=== PATIENT | female | born 1935 | race Caucasian/White ===

== ENCOUNTER 2017-12-13 21:23 | Emergency (ER) | payer MEDICARE, OTHER ==
[~2017-12-13] VITALS: Ht 170.2 cm; Wt 72.6 kg
[~2017-12-13 21:23] MED LIST: ALBU90OI; ALBU90OI INH; ALEN70 PO; Albuterol2.5 MG/0.5 INH; Alphagan P 5ML5 ML BOTHEYES; Alphagan P5 ML; BENZ100A PO; CIPR500 PO; DOC250 PO; ESTR1; FLUSAL1005; FLUSAL2505; FLUSAL5005 INH; FLUT.05NI; GABA100 PO; GUAI600T33 PO; LATANOPROST2.5 ML BOTHEYES; LAVAP17G PO; LEVFLO500 PO; LEVO750 PO; Miralax17 GM PO; PRED20 PO; Patanase30.5 GM; TIOT18 INH; TRIHYD253A; [UNRECOGNIZED DRUG - REMARK]
[2017-12-13] MEDS ORDERED: FURO20 PO (21:52)
[2017-12-13] MEDS ORDERED: FLONASE ALLERG9.9 ML (21:52)
[2017-12-13] MEDS ORDERED: POTCHL10ER PO (21:53)
[2017-12-13] MEDS ORDERED: Bactrim Ds Tab1 EACH PO (23:59)
== END 2017-12-14 00:50 | disposition home or self-care (01) ==
LOC: ER 21:23
DX: L03.115 Cellulitis of right lower limb (principal); J44.9 Chronic obstructive pulmonary disease, unspecified; Z88.0 Allergy status to penicillin; Z79.899 Other long term (current) drug therapy; Z90.89 Acquired absence of other organs; Z95.0 Presence of cardiac pacemaker; Z87.891 Personal history of nicotine dependence
CPT/HCPCS: 99283

== ENCOUNTER 2018-01-10 08:00 | Emergency (ER) | payer MEDICARE, OTHER ==
[~2018-01-10] VITALS: Ht 167.6 cm; Wt 72.6 kg
[~2018-01-10 08:00] MED LIST changes: +Bactrim Ds Tab1 EACH PO; +FLONASE ALLERG9.9 ML; +FURO20 PO; +POTCHL10ER PO
[2018-01-10 09:12] LABS: BASOPHILS ABSOLUTE AUTO 0.06 K/mm3 (0.00-0.23); BASOPHILS PERCENT AUTO 1 % (0-2); EOSINOPHILS ABSOLUTE AUTO 0.02 K/mm3 (0.00-0.68); EOSINOPHILS PERCENT AUTO 0 % (0-6); Hematocrit 31.6 % (33.0-51.0); Hemoglobin 9.6 g/dL (11.5-16.0); IMMATURE GRAN ABSOLUTE AUTO 0.05 K/mm3 (0.00-0.10); IMMATURE GRAN PERCENT AUTO 0 % (0-1); LYMPHOCYTES PERCENT AUTO 6 % (21-46); MONOCYTES ABSOLUTE AUTO 1.04 K/mm3 (0.16-1.47); MONOCYTES PERCENT AUTO 8 % (4-13); Mean Corpuscular HGB 28.9 pg (26.0-34.0); Mean Corpuscular HGB Conc 30.4 g/dL (31.5-36.5); Mean Corpuscular Volume 95 fL (80-100); Mean Platelet Volume 10.4 fL (9.1-12.4); NEUTROPHILS ABSOLUTE AUTO 10.91 K/mm3 (1.96-9.15); NEUTROPHILS PERCENT AUTO 85 % (41-73); Platelet Count 293 K/mm3 (150-400); RDW Coefficient Variation 13.6 % (11.7-14.2); RDW Standard Deviation 47.4 fL (35.1-46.3); Red Blood Cell Count 3.32 M/mm3 (3.80-5.20); White Blood Cell Count 12.78 K/mm3 (4.00-11.30)
[2018-01-10 09:25] LABS: Alanine Aminotransfer (ALT/SGP 15 U/L (12-78); Albumin, Blood 2.7 g/dL (3.4-5.0); Albumin/Globulin Ratio 0.6 (0.8-1.8); Alk Phos 83 U/L (50-136); Anion Gap 8 mmol/L (6-16); Aspartate Aminotrans (AST/SGOT 16 U/L (12-37); Bilirubin, Total 0.5 mg/dL (0.1-1.0); Blood Urea Nitrogen 20 mg/dL (8-24); Bun/Creatinine Ratio 22.1 (12.0-20.0); CO2, Blood 32 mmol/L (21-32); Calcium, Blood 8.8 mg/dL (8.5-10.1); Chloride, Blood 100 mmol/L (98-108); Creatinine, Blood 0.91 mg/dL (0.40-1.00); Globulin, Blood 4.3 g/dL (2.2-4.0); Glomerular Filtration Rate >60 (60-); Glucose, Blood 102 mg/dL (70-99); Potassium, Blood 3.9 mmol/L (3.5-5.5); Sodium, Blood 140 mmol/L (136-145); Troponin I <0.015 ng/mL (0.000-0.040)
[2018-01-10 09:32] LABS: International Normalized Ratio 1.15
[2018-01-10 11:21] LABS: Base Excess Venous 6.3 mmol/L; Bicarbonate Venous 29.4 mmol/L (24.0-30.0); PO2 Venous 106 mmHg (38-42); pH Blood Venous 7.39 (7.34-7.37)
[2018-01-10] MEDS ORDERED: LEVFLO500 PO (11:56)
== END 2018-01-10 12:40 | disposition home or self-care (01) ==
LOC: ER 08:00
PROVIDERS: Emergency Medicine
DX: J43.9 Emphysema, unspecified (principal); R07.89 Other chest pain; Z99.81 Dependence on supplemental oxygen; Z88.0 Allergy status to penicillin; Z79.899 Other long term (current) drug therapy; Z90.49 Acquired absence of other specified parts of digestive tract; Z87.891 Personal history of nicotine dependence; Z87.01 Personal history of pneumonia (recurrent)
CPT/HCPCS: 36415; 71046; 80053; 82803; 83880; 84484; 85025; 85610; 93005; 93010; 94640; 99284

== ENCOUNTER 2018-03-06 13:10 | Emergency (ER) | payer MEDICARE, OTHER ==
[~2018-03-06] VITALS: Ht 167.6 cm; Wt 70.8 kg
== END 2018-03-06 14:41 | disposition home or self-care (01) ==
LOC: ER 13:10
DX: T83.028A Displacement of other urinary catheter, initial encounter (principal); Z88.0 Allergy status to penicillin; Z79.899 Other long term (current) drug therapy; Z79.2 Long term (current) use of antibiotics; J44.9 Chronic obstructive pulmonary disease, unspecified; Z87.01 Personal history of pneumonia (recurrent); Z87.891 Personal history of nicotine dependence
CPT/HCPCS: 51700; 51798; 99283

== ENCOUNTER → 2019-11-06 | Outpatient (CLI) | payer MEDICARE, OTHER ==
[2019-11-06 15:40] LABS: Appearance, Urine Hazy (Clear); Color, Urine Yellow (P-Yellow); Leukocyte Esterase, Urine 2+ (Neg)
[2019-11-06 15:41] LABS: Bacteria Many /hpf; Bilirubin, Urine 1+ (Neg); Blood, Urine Trace (Neg); Glucose Qualitative, Urine Neg (Normal); Ketones, Urine Neg (Neg); Nitrite, Urine Pos (Neg); Protein, Urine Trace (Neg); Squamous Epithelial Cells Few /hpf (Few); Urobilinogen, Urine NORM (Normal); White Blood Cells, Urine 25-50 /hpf (0-5)
== END | disposition home or self-care (01) ==
LOC: LAB EV 14:53
PROVIDERS: Physician Assistant
DX: N17.9 Acute kidney failure, unspecified (principal)
CPT/HCPCS: 81001; 87077; 87086; 87186

== ENCOUNTER → 2019-11-30 | Outpatient (CLI) | payer MEDICARE, OTHER ==
[2019-11-30 09:07] LABS: Microalbumin, Urine Quant. 6.64 mg/L (0.000-20.000)
== END | disposition home or self-care (01) ==
LOC: LAB 08:24 → LAB SHORT 08:24
PROVIDERS: Physician Assistant
DX: N18.9 Chronic kidney disease, unspecified (principal)
CPT/HCPCS: 81050; 82043

== ENCOUNTER → 2020-02-08 | Outpatient (CLI) | payer MEDICARE, OTHER ==
[~2020-02-08] MED LIST changes: +SORBITOL1 ML PO
[2020-02-08 10:53] LABS: Creatinine Urine 84.9 mg/dL (27.00-270.00); Protein, Urine Quantitative 7.7 mg/dL (0.0-11.9)
== END | disposition home or self-care (01) ==
LOC: LAB SHORT 09:43 → LAB 09:43 → LAB FUT 02-02 17:55
PROVIDERS: Internal Medicine Nephrology
DX: N18.3 Chronic kidney disease, stage 3 (moderate) (principal); D63.1 Anemia in chronic kidney disease; N25.81 Secondary hyperparathyroidism of renal origin; E55.9 Vitamin D deficiency, unspecified; E78.00 Pure hypercholesterolemia, unspecified; R76.9 Abnormal immunological finding in serum, unspecified; R94.5 Abnormal results of liver function studies; R94.6 Abnormal results of thyroid function studies
CPT/HCPCS: 81050; 82108; 82570; 84156

== ENCOUNTER 2020-05-30 16:27 | Inpatient (IN) | payer MEDICARE, OTHER ==
[~2020-05-30] VITALS: Ht 167.6 cm; Wt 92.6 kg
[~2020-05-30 16:27] MED LIST changes: +BISA10S PR; +CEPH500 PO; -FLONASE ALLERG9.9 ML; -FLUSAL5005 INH; +FLUT1DIS8 INH; +HYDCHL25 PO; +SENN187 PO
[2020-05-30] MEDS ORDERED: VITAMIN D31000 UNI1 PO (17:03)
[2020-05-30 17:33] LABS: BASOPHILS ABSOLUTE AUTO 0.04 K/mm3 (0.00-0.23); BASOPHILS PERCENT AUTO 0 % (0-2); EOSINOPHILS ABSOLUTE AUTO 0.07 K/mm3 (0.00-0.68); EOSINOPHILS PERCENT AUTO 1 % (0-6); Hematocrit 39.9 % (33.0-51.0); Hemoglobin 11.5 g/dL (11.5-16.0); IMMATURE GRAN ABSOLUTE AUTO 0.05 K/mm3 (0.00-0.10); IMMATURE GRAN PERCENT AUTO 1 % (0-1); LYMPHOCYTES ABSOLUTE AUTO 0.64 K/mm3 (0.84-5.20); LYMPHOCYTES PERCENT AUTO 7 % (21-46); MONOCYTES ABSOLUTE AUTO 0.82 K/mm3 (0.16-1.47); MONOCYTES PERCENT AUTO 9 % (4-13); Mean Corpuscular HGB 27.5 pg (26.0-34.0); Mean Corpuscular HGB Conc 28.8 g/dL (31.5-36.5); Mean Corpuscular Volume 96 fL (80-100); Mean Platelet Volume 10.1 fL (9.1-12.4); NEUTROPHILS ABSOLUTE AUTO 7.57 K/mm3 (1.96-9.15); NEUTROPHILS PERCENT AUTO 82 % (41-73); Platelet Count 273 K/mm3 (150-400); RDW Coefficient Variation 13.6 % (11.7-14.2); RDW Standard Deviation 47.8 fL (35.1-46.3); Red Blood Cell Count 4.18 M/mm3 (3.80-5.20); White Blood Cell Count 9.19 K/mm3 (4.00-11.30)
[2020-05-30 17:56] LABS: Albumin/Globulin Ratio 0.7 (0.8-1.8); Bilirubin, Total 0.7 mg/dL (0.1-1.0); Bun/Creatinine Ratio 15.5 (12.0-20.0); Creatinine, Blood 1.03 mg/dL (0.40-1.00); Globulin, Blood 4.4 g/dL (2.2-4.0); Potassium, Blood 3.9 mmol/L (3.5-5.5); Total Protein, Blood 7.4 g/dL (6.4-8.2)
[2020-05-30] MEDS ORDERED: CALC.25 PO (18:55)
--- NOTE | 2020-05-30 18:59 | NUR ---
Assumed Care Patient arrived to unit @ 1645 via w/c and 2L O2 via NC. Denies pain, nausea, diarrhea. VSS. Lung sounds were wheezy t/o. Transferred to bed x 1 moderate assist. BLE wrapped with coban at [place] to control edema per patient report. XR-2V completed. Suprapubic patient and draining, leg bag changed to hospital cath bag. Urine is cloudy, yellow, and has a sour foul smell. Pt reports thick pale yellow phlegm while at [place]. 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 Daughter in law at the bedside. Will report to night RN.
[2020-05-31 05:40] LABS: BASOPHILS ABSOLUTE AUTO 0.02 K/mm3 (0.00-0.23); BASOPHILS PERCENT AUTO 0 % (0-2); EOSINOPHILS ABSOLUTE AUTO 0.01 K/mm3 (0.00-0.68); EOSINOPHILS PERCENT AUTO 0 % (0-6); Hematocrit 31.9 % (33.0-51.0); Hemoglobin 9.3 g/dL (11.5-16.0); IMMATURE GRAN ABSOLUTE AUTO 0.03 K/mm3 (0.00-0.10); IMMATURE GRAN PERCENT AUTO 0 % (0-1); LYMPHOCYTES ABSOLUTE AUTO 0.39 K/mm3 (0.84-5.20); LYMPHOCYTES PERCENT AUTO 6 % (21-46); MONOCYTES ABSOLUTE AUTO 0.76 K/mm3 (0.16-1.47); MONOCYTES PERCENT AUTO 11 % (4-13); Mean Corpuscular HGB 27.6 pg (26.0-34.0); Mean Corpuscular HGB Conc 29.2 g/dL (31.5-36.5); Mean Corpuscular Volume 95 fL (80-100); Mean Platelet Volume 10.3 fL (9.1-12.4); NEUTROPHILS ABSOLUTE AUTO 5.73 K/mm3 (1.96-9.15); NEUTROPHILS PERCENT AUTO 83 % (41-73); Platelet Count 217 K/mm3 (150-400); RDW Coefficient Variation 13.6 % (11.7-14.2); RDW Standard Deviation 47.4 fL (35.1-46.3); Red Blood Cell Count 3.37 M/mm3 (3.80-5.20); White Blood Cell Count 6.94 K/mm3 (4.00-11.30)
[2020-05-31 06:12] LABS: Bun/Creatinine Ratio 14.9 (12.0-20.0); Calcium, Blood 8.9 mg/dL (8.5-10.1); Creatinine, Blood 1.01 mg/dL (0.40-1.00)
--- NOTE | 2020-05-31 07:20 | NUR ---
05/31/20 0600 NPO SINCE MIDNIGHT FOR POSS. PROCEDURE TODAY. HAD FOUR LIQUID BM'S AFTER PREP WAS GIVEN. PT IS NO "CLEAN" IN BOWELS YET. PT TURNED Q 2 HOURS AND JOHNNY-CARE GIVEN EACH TIME. DENIES ANY PAIN OR S/S THIS SHIFT. FAMILY TO BRING IN EYE DROPS AND NASAL SPRAY.
--- NOTE | 2020-05-31 11:43 | NUR ---
PROCEDURE PT TAKEN TO DAY SURGERY FOR SCOPE
--- NOTE | 2020-05-31 11:56 | NUR ---
Patient states colon prep results clear. History, Chart, Medications and Allergies reviewed before start of procedure. Patient confirms NPO status and agrees with scheduled surgery. Pre-Op teaching done. Pt verbalizes understanding.
--- NOTE | 2020-05-31 12:19 | NUR ---
05/31/20 1219 Juan Carlos Son See Anesthesia record. O2 VIA N/C INTACT THROUGHOUT SEDATION/PROCEDURE. MONITOR INTACT WITH CONTINUOUS PULSE OXIMETRY AND INTERMITTENT BP. History, Chart, Medications and Allergies reviewed before start of procedure. Patient to ENDO 1.
--- NOTE | 2020-05-31 17:51 | NUR ---
SUMMARY PT SITTING UP IN BED EATING DINNER, PT HAD A COLONOSCOPY TODAY, FARHAT WELL, PT IS PLEASANT AND COOPERATIVE WITH CARE, PT/OT WILL EVAL THE PATIENT TOMORROW, PT'S DAUGHTER CAME IN AND BROUGHT MISSING MEDS FROM HOME, VSS, NO ACUTE CHANGES, WILL CONT TO MONITOR
--- NOTE | 2020-06-01 04:14 | NUR ---
SHIFT SUMMARY ADMITTED FOR CONSTIPATION/FAILURE TO THRIVE. DNR CODE. PLAN IS FOR PHYSICAL THERAPY TO EVALUATE NEEDS FOR DC. 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 SHE HAD A COLONOSCOPY YESTERDAY. SHE IS A&O X4, 2 LPM O2 @ BASELINE VIA NC.
[2020-06-01 05:19] LABS: BASOPHILS ABSOLUTE AUTO 0.03 K/mm3 (0.00-0.23); BASOPHILS PERCENT AUTO 0 % (0-2); EOSINOPHILS ABSOLUTE AUTO 0.11 K/mm3 (0.00-0.68); EOSINOPHILS PERCENT AUTO 2 % (0-6); Hematocrit 27.8 % (33.0-51.0); IMMATURE GRAN ABSOLUTE AUTO 0.02 K/mm3 (0.00-0.10); IMMATURE GRAN PERCENT AUTO 0 % (0-1); LYMPHOCYTES ABSOLUTE AUTO 0.49 K/mm3 (0.84-5.20); LYMPHOCYTES PERCENT AUTO 7 % (21-46); MONOCYTES ABSOLUTE AUTO 0.65 K/mm3 (0.16-1.47); MONOCYTES PERCENT AUTO 10 % (4-13); Mean Corpuscular HGB 27.8 pg (26.0-34.0); Mean Corpuscular HGB Conc 28.8 g/dL (31.5-36.5); Mean Corpuscular Volume 97 fL (80-100); Mean Platelet Volume 10.3 fL (9.1-12.4); NEUTROPHILS ABSOLUTE AUTO 5.38 K/mm3 (1.96-9.15); NEUTROPHILS PERCENT AUTO 81 % (41-73); Platelet Count 170 K/mm3 (150-400); RDW Standard Deviation 49.2 fL (35.1-46.3); Red Blood Cell Count 2.88 M/mm3 (3.80-5.20); White Blood Cell Count 6.68 K/mm3 (4.00-11.30)
[2020-06-01 05:45] LABS: Bun/Creatinine Ratio 13.7 (12.0-20.0); Creatinine, Blood 0.95 mg/dL (0.40-1.00); Potassium, Blood 3.5 mmol/L (3.5-5.5)
--- NOTE | 2020-06-01 18:44 | NUR ---
SUMMARY PT RESTING QUIETLY IN BED, IV BLEW, WILL NEED NEW ONE, PT WORKED WITH PT/OT TODAY, PLAN TO GO TO SNF IN AM, PT HAS BEEN PLEASANT AND COOPERATIVE WITH CARE, NO ACUTE CHANGES, WILL CONT TO MONITOR
--- NOTE | 2020-06-02 02:04 | NUR ---
CALLED [facility] DELIVERY PROFESSIONAL IV FAILED ON PREVIOUS SHIFT. ATTEMPTS MADE TO START A NEW IV BY TWO DIFFERENT STAFF WERE UNSUCCESSFUL. I CALLED [facility]SS DELIVERY PROFESSIONAL TO INFORM HIM. I ALSO INFORMED HIM THAT THE PLAN IS FOR DC TO A SNF TODAY. HE AGREED TO SWITCH THIS PT TO ORAL ANTIBIOTICS AND NO IV ACCESS IS NEEDED AT THIS TIME.
[2020-06-02 04:41] LABS: BASOPHILS ABSOLUTE AUTO 0.02 K/mm3 (0.00-0.23); BASOPHILS PERCENT AUTO 0 % (0-2); EOSINOPHILS ABSOLUTE AUTO 0.12 K/mm3 (0.00-0.68); EOSINOPHILS PERCENT AUTO 2 % (0-6); Hematocrit 28.4 % (33.0-51.0); Hemoglobin 8.1 g/dL (11.5-16.0); IMMATURE GRAN ABSOLUTE AUTO 0.03 K/mm3 (0.00-0.10); IMMATURE GRAN PERCENT AUTO 0 % (0-1); LYMPHOCYTES ABSOLUTE AUTO 0.44 K/mm3 (0.84-5.20); LYMPHOCYTES PERCENT AUTO 6 % (21-46); MONOCYTES ABSOLUTE AUTO 0.54 K/mm3 (0.16-1.47); MONOCYTES PERCENT AUTO 7 % (4-13); Mean Corpuscular HGB 27.5 pg (26.0-34.0); Mean Corpuscular HGB Conc 28.5 g/dL (31.5-36.5); Mean Corpuscular Volume 96 fL (80-100); Mean Platelet Volume 9.9 fL (9.1-12.4); NEUTROPHILS PERCENT AUTO 85 % (41-73); Platelet Count 158 K/mm3 (150-400); RDW Coefficient Variation 13.8 % (11.7-14.2); RDW Standard Deviation 49.1 fL (35.1-46.3); Red Blood Cell Count 2.95 M/mm3 (3.80-5.20); White Blood Cell Count 7.55 K/mm3 (4.00-11.30)
[2020-06-02 05:06] LABS: Bun/Creatinine Ratio 14.4 (12.0-20.0); Calcium, Blood 8.3 mg/dL (8.5-10.1); Creatinine, Blood 0.97 mg/dL (0.40-1.00); Potassium, Blood 4.3 mmol/L (3.5-5.5)
--- NOTE | 2020-06-02 05:17 | NUR ---
SHIFT SUMMARY ADMITTED FOR CONSTIPATION/FAILURE TO THRIVE. DNR CODE. BEING TX'D EMPIRICALLY FOR ASTHMATIC BRONCHITIS AND PNEUMONIA. PLAN IS FOR PLACEMENT IN A SNF TODAY. COLONOSCOPY PERFORMED 2 DAYS AGO, FOUND DIVERTICULOSIS. SHE IS ON HER BASELINE OF 2 LPM O2. SHE HAS A SUPRAPUBIC CATHETER. SHE HAS A PACEMAKER. ON CARDIAC DIET. 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 SHE WAS SWITCHED TO ORAL ANTIBIOTICS THIS SHIFT. HX: COPD, CKD3, PULMONARY HTN, AV BLOCK, HTN.
--- NOTE | 2020-06-02 18:02 | NUR ---
SUMMARY PT SITTING UP IN BED EATING DINNER, PT HAS BEEN UP IN THE CHAIR AND WORKED WITH PT/OT TODAY, HAS BEEN PLEASANT AND COOPERATIVE WITH CARE T/O THE DAY, SOB WITH ANY ACTIVITY, PLAN TO DC TO SNF IN AM, WILL CONT TO MONITOR
--- NOTE | 2020-06-03 04:37 | NUR ---
SHIFT SUMMARY ADMITTED FOR CONSTIPATION/FAILURE TO THRIVE. DNR CODE. COLONOSCOPY PERFORMED 05/31. PLAN IS FOR PLACEMENT TO A SNF, HOPEFULLY TODAY. RAPID COVID - NEGATIVE, SNF REQUIRED A NEW COVID PCR TEST BEFORE THEY WOULD ACCEPT HER. AWAITING RESULTS. SHE IS ON BASELINE 2 LPM O2, HAS A SUPRAPUBIC CATHETER. SHE IS BEING TX'D EMPIRICALLY FOR ASTHMATIC BRONCHITIS & PNEUMONIA. PT RECOMMENDS UP IN CHAIR TOLERATED. PACEMAKER IN PLACE. SHE IS A&O X4, CALLS APPROPRIATELY. I DID PUT A PREVENTATIVE MEPILEX IN PLACE DUE TO REDNESS ON HER COCCYX. WE ARE Q2 REPOSITIONING HER JUST TO BE SAFE. I DID NOTE 2+ TO 3+ BLE EDEMA. HX: CKD3, IRON DEF ANEMIA, COPD, AV BLOCK, DIVERTICULOSIS, PULMONARY HTN.
[2020-06-03 04:59] LABS: BASOPHILS PERCENT AUTO 0 % (0-2); EOSINOPHILS PERCENT AUTO 0 % (0-6); Hematocrit 28.9 % (33.0-51.0); Hemoglobin 8.5 g/dL (11.5-16.0); IMMATURE GRAN ABSOLUTE AUTO 0.03 K/mm3 (0.00-0.10); IMMATURE GRAN PERCENT AUTO 1 % (0-1); LYMPHOCYTES ABSOLUTE AUTO 0.14 K/mm3 (0.84-5.20); LYMPHOCYTES PERCENT AUTO 2 % (21-46); MONOCYTES ABSOLUTE AUTO 0.08 K/mm3 (0.16-1.47); MONOCYTES PERCENT AUTO 1 % (4-13); Mean Corpuscular HGB 28.1 pg (26.0-34.0); Mean Corpuscular HGB Conc 29.4 g/dL (31.5-36.5); Mean Corpuscular Volume 95 fL (80-100); Mean Platelet Volume 10.5 fL (9.1-12.4); NEUTROPHILS ABSOLUTE AUTO 6.18 K/mm3 (1.96-9.15); NEUTROPHILS PERCENT AUTO 96 % (41-73); Platelet Count 143 K/mm3 (150-400); RDW Coefficient Variation 13.5 % (11.7-14.2); RDW Standard Deviation 46.6 fL (35.1-46.3); Red Blood Cell Count 3.03 M/mm3 (3.80-5.20); White Blood Cell Count 6.43 K/mm3 (4.00-11.30)
[2020-06-03 05:17] LABS: Anion Gap 1 mmol/L (6-16); Blood Urea Nitrogen 16 mg/dL (8-24); Bun/Creatinine Ratio 18.8 (12.0-20.0); CO2, Blood 38 mmol/L (21-32); Calcium, Blood 8.7 mg/dL (8.5-10.1); Chloride, Blood 100 mmol/L (98-108); Creatinine, Blood 0.85 mg/dL (0.40-1.00); Glomerular Filtration Rate >60 (60-); Glucose, Blood 153 mg/dL (70-99); Potassium, Blood 4.8 mmol/L (3.5-5.5); Sodium, Blood 139 mmol/L (136-145)
--- NOTE | 2020-06-03 10:00 | NUR ---
DR SIMON IN ROOM, REQUEST UNNA BOOTS PLACED AND CHANGED Q3 DAYS. PLACED ORDERS.
--- NOTE | 2020-06-03 11:57 | NUR ---
SPOKE TO DR SIMON THIS AM. DISCUSSE LUNGS TIGHT DIM WHEEZY. EDEMA LEGS. LITTLE AIR MOVEMENT. LASIX ORDERED AND ADMIN. PT ALREADY RECEIVING BREATHIING TX. RECHECKED LUNGS AT NOON. STILL TIGHT, DIM, WHEEZY, BUT IMPROVED. A LITTLE MORE AIR MOVEMENT.
--- NOTE | 2020-06-03 14:30 | NUR ---
UNNA BOOTS PLACED PER DR ORDERS. NO DRAINAGE OR INFECTION NOTED. BOOTS PLACED WITH CHARGE ASSISTANCE. PEDAL PULSES NOTED. CAP REFILL <3 SEC AFTER PLACEMENT. ADVISED PT IF BECOME TIGHT OR FEELING IN FEET CHKANGE, TO GET ASSISTANCE. PT IS A/O AND USES CALL LITE APPROP. PT IN RECLINER CHAIR AT THIS TIME. CALL LITE IN REACH,
--- NOTE | 2020-06-03 18:21 | NUR ---
DAUGHTER IN ROOM. QUITE PLEASANT. PT STATES FEELS SOME BETTER TODAY. LASIX HELPED. LEGS WRAPPED TODAY WITH NEW UNNABOOTS. PT SITTING IN RECLINER CHAIR AT THIS TIME. PT TALKATIVE, PLEASANT. PAIN MANAGED WITH AVAIL TYLENOL. NO NEW CONCERNS AT THIS TIME. CALL LITE IN REACH. DAUGHTER AT BEDSIDE. EATING DINNER AT THIS TIME.
--- NOTE | 2020-06-04 03:23 | NUR ---
SHIFT SUMMARY: VSS. AFEB. AAOX3. ABLE TO COMMUNICATE NEEDS. PT REMAINED IN BED. UNABLE TO TURN SELF SO ASSISTED W/Q2HR TURNS. ABD SOFT, NON-TENDER, NON-DISTENDED. BT ACTIVE X 4. NO BM TONIGHT. BOWEL MEDS ADMINISTERED PER EMAR. FARHAT PO INTAKE. DENIES N/V. LS DIM EXCEPT EXPIRATORY WHEEZE IN [place]. 02 SATS >95% ON 2L VIA NC. NO ACUTE CHANGES OVERNIGHT. WILL CONT TO MONITOR.
[2020-06-04 05:10] LABS: BASOPHILS ABSOLUTE AUTO 0.01 K/mm3 (0.00-0.23); BASOPHILS PERCENT AUTO 0 % (0-2); EOSINOPHILS PERCENT AUTO 0 % (0-6); Hematocrit 28.4 % (33.0-51.0); Hemoglobin 8.5 g/dL (11.5-16.0); IMMATURE GRAN ABSOLUTE AUTO 0.04 K/mm3 (0.00-0.10); IMMATURE GRAN PERCENT AUTO 1 % (0-1); LYMPHOCYTES ABSOLUTE AUTO 0.26 K/mm3 (0.84-5.20); LYMPHOCYTES PERCENT AUTO 3 % (21-46); MONOCYTES ABSOLUTE AUTO 0.38 K/mm3 (0.16-1.47); MONOCYTES PERCENT AUTO 5 % (4-13); Mean Corpuscular HGB 28.1 pg (26.0-34.0); Mean Corpuscular HGB Conc 29.9 g/dL (31.5-36.5); Mean Corpuscular Volume 94 fL (80-100); Mean Platelet Volume 10.8 fL (9.1-12.4); NEUTROPHILS ABSOLUTE AUTO 7.23 K/mm3 (1.96-9.15); NEUTROPHILS PERCENT AUTO 91 % (41-73); Platelet Count 171 K/mm3 (150-400); RDW Coefficient Variation 13.2 % (11.7-14.2); RDW Standard Deviation 45.3 fL (35.1-46.3); Red Blood Cell Count 3.03 M/mm3 (3.80-5.20); White Blood Cell Count 7.92 K/mm3 (4.00-11.30)
[2020-06-04 05:32] LABS: Anion Gap 0 mmol/L (6-16); Blood Urea Nitrogen 19 mg/dL (8-24); Bun/Creatinine Ratio 23.1 (12.0-20.0); CO2, Blood 41 mmol/L (21-32); Calcium, Blood 8.5 mg/dL (8.5-10.1); Chloride, Blood 99 mmol/L (98-108); Creatinine, Blood 0.82 mg/dL (0.40-1.00); Glomerular Filtration Rate >60 (60-); Glucose, Blood 116 mg/dL (70-99); Potassium, Blood 4.6 mmol/L (3.5-5.5); Sodium, Blood 140 mmol/L (136-145)
[2020-06-04] MEDS ORDERED: ACET500 PO (15:23)
[2020-06-04] MEDS ORDERED: ALBU2.5V5 INH (15:25)
[2020-06-04] MEDS ORDERED: CEFP200 PO (15:28)
[2020-06-04] MEDS ORDERED: BISA10S PR (15:28)
[2020-06-04] MEDS ORDERED: FEROSUL325 M1 PO (15:29)
--- NOTE | 2020-06-04 18:27 | NUR ---
PT PLEASANT TODAY . WAS HOPEFUL FOR COVID TEST RETURN AND DISCHARGE TO SNF [facility] TODAY. DID NOT OCCUR. D/C IS DONE AND PENDING PRINT. WHEN TEST RETURNED D/C PLANNERS WILL ASSIST TO D/C. PT LUNGS REMAIN TIGHT, LIGHT WHEEZES AND DIM. DISCUSSED WITH DR. DIAZ NEW CONCERNS TODAY. BED IN LOW POSITIOIN, CALL LITE IN REACH, CALLS APPROP.
--- NOTE | 2020-06-05 04:48 | NUR ---
SHIFT SUMMARY: VSS. PULSE 107. PT REPORTING ABD CRAMPING. SUPPOSITORY ADMINISTERED AND PT ASSISTED UP TO BSC. PASSED A MEDIUM SOFT BROWN STOOL. REPORTS CRAMPING IMPROVED AFTER BM. NO N/V. SOB W/EXERTION. 02 SATS 100% ON RA. EXP WHEEZE AUSUCLTATED IN BILATERAL UPPER LOBES, R MID LOBE. INSPIRATORY CRACKLES IN LLL. OCC COUGH, PRODUCED MOD AMT OF CLEAR YELLOW SPUTUM TONIGHT. APPEARS TO HAVE SLEPT BETTER TONIGHT. WILL CONT TO MONITOR.
--- NOTE | 2020-06-05 09:10 | NUR ---
I CALLED RACH AT [facility] TO LET HER KNOW THE 2ND COVID TEST CAME BACK NEGATIVE. LATER DR. SIMON RE-DATED AND SIGNED THE ORDERS. ALL REPORTS FAXED TO [facility]. WHEN CONFIRMED WITH RACH, I WILL ARRANGE TRANSPORTATION FOR DISCHARGE OVER TO [facility].
--- NOTE | 2020-06-05 11:31 | NUR ---
DISCHARGE SUMMARY PT AXO, PLEASANT AND COOPERATIVE WITH CARE. PT DISCHARGED TO [facility]. REPORT CALLED AT 1122 TO [facility], ALL QUESTIONS ANSWERED. VSS AT DISCHARGE. IV DC'D AND BELONGINGS RETURNED WITH FAMILY MEMBER PRESENT. PT LEFT ROOM ROOM VIA WHEELCHAIR PRIOR TO CALLING REPORT VIA TRANSPORT SERVICE.
== END 2020-06-05 11:23 | DRG 193 ==
LOC: MEDS 16:27 → ENPENDDIS 06-04 17:11 → MEDS 06-05 11:23
PROVIDERS: Internal Medicine Gastroenterology; ADMIT Family Medicine
PROC: 0DBL8ZX Excision of Transverse Colon, Via Natural or Artificial Opening Endoscopic, Diagnostic (ICD-10-PCS; principal; 2020-05-31 11:45)
DX: J18.9 Pneumonia, unspecified organism (principal); J96.21 Acute and chronic respiratory failure with hypoxia; J44.1 Chronic obstructive pulmonary disease with (acute) exacerbation; J44.0 Chronic obstructive pulmonary disease with (acute) lower respiratory infection; I44.2 Atrioventricular block, complete; Q43.8 Other specified congenital malformations of intestine; E44.0 Moderate protein-calorie malnutrition; Z20.828 Contact with and (suspected) exposure to other viral communicable diseases; K59.04 Chronic idiopathic constipation; I12.9 Hypertensive chronic kidney disease with stage 1 through stage 4 chronic kidney disease, or unspecified chronic kidney disease; N18.3 Chronic kidney disease, stage 3 (moderate); I27.20 Pulmonary hypertension, unspecified; H40.9 Unspecified glaucoma; D50.9 Iron deficiency anemia, unspecified; K63.5 Polyp of colon; K57.30 Diverticulosis of large intestine without perforation or abscess without bleeding; E87.6 Hypokalemia; R33.9 Retention of urine, unspecified; G62.9 Polyneuropathy, unspecified; R62.7 Adult failure to thrive; Z66 Do not resuscitate; Z95.0 Presence of cardiac pacemaker; Z79.899 Other long term (current) drug therapy; Z87.891 Personal history of nicotine dependence; Z79.51 Long term (current) use of inhaled steroids; Z99.81 Dependence on supplemental oxygen
CPT/HCPCS: 36415; 71045; 71046; 74018; 80048; 80053; 83540; 83880; 85025; 87070; 87205; 88305; 93005; 93010; 94640; 94760; 97110; 97116; 97162; 97166; 97530; 97535; A9270; A9270-GY; J0456; J0696; J1650; J1940; J2405; J2704; J2930; J7042; J7050; J7120; U0002; U0003